=== PATIENT | female | born 1980 | race American Indian/Alaskan Native ===

== ENCOUNTER 2017-11-02 07:16 | Emergency (ER) | payer MEDICAID ==
[2017-11-02 08:07] VITALS: BP 126/92
== END 2017-11-02 08:06 | disposition left against medical advice (07) ==
LOC: ED 07:16
DX: R11.11 Vomiting without nausea (principal); Z53.21 Procedure and treatment not carried out due to patient leaving prior to being seen by health care provider
CPT/HCPCS: 82962